=== PATIENT | female | born 1980 | race Caucasian/White ===

== ENCOUNTER 2017-10-11 18:52 | Emergency (ER) | payer BC ==
[~2017-10-11] VITALS: Ht 165.1 cm; Wt 129.3 kg
[2017-10-11 18:54] VITALS: BP 133/90
--- NOTE | 2017-10-11 19:22 | NUR ---
37/F CAME IN W C/O 06/17 LUQ PAIN RADIATING TO BACK, THROBBING, INTERMITTENT X 2 DAYS. PT DENIES TRAUMA/INJURY, DENIES N/V/D, FEVER/CHILLS, SOB/CP/COUGH, DENIES DYSURIA/HEMATURIA. ABD SOFT, ROUND , -TENDERNESS. PMH: HTN RX: HCTZ
--- NOTE | 2017-10-11 21:25 | NUR ---
Patient appears to be resting comfortably in bed. Vital Signs within normal limits. Respirations even and unlabored.
--- NOTE | 2017-10-11 22:38 | NUR ---
Patient discharged with v/s stable. Written and verbal after care instructions given and explained. Patient alert, oriented and verbalized understanding of instructions. Ambulatory with steady gait. All questions addressed prior to discharge. ID band removed. Patient advised to follow up with PMD. Rx of FLEXERIL AND IBUPROFEN given. Patient educated on indication of medication including possible reaction and side effects. Opportunity to ask questions provided and answered.
[2017-10-11 22:41] VITALS: BP 132/92
== END 2017-10-11 22:38 | disposition home or self-care (01) ==
LOC: MED 18:52
DX: S20.20XA Contusion of thorax, unspecified, initial encounter (principal); I10 Essential (primary) hypertension; X58.XXXA Exposure to other specified factors, initial encounter; Y93.89 Activity, other specified; Y92.89 Other specified places as the place of occurrence of the external cause; Y99.8 Other external cause status
CPT/HCPCS: 71101; 81025; 99284